=== PATIENT | female | born 2000 | race Caucasian/White ===

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

== ENCOUNTER 2024-04-19 11:47 | Emergency (ER) | payer BC, SELFPAY ==
[2024-04-19 11:48] VITALS: BP 140/89; PULSE 93; RESP 16; TEMP 36.6; O2SAT 100; BMI 30.1
--- NOTE | 2024-04-19 11:56 | US_ITS ---
PROCEDURE: TRANSVAGINAL NON- REASON FOR EXAM: Pain, left vaginal bleeding TECHNIQUE: Transabdominal pelvic ultrasound COMPARISON: None. FINDINGS: Measurements: Uterus: 7.7 x 4.4 x 4.0 with a volume of 71.96 mL Endometrial Thickness: 0.43 Right Ovary: 4.3 x 2.1 x 3.78 with a volume of 17.5 mL. Left Ovary: 2.7 x 2.3 x 1.4 with a volume of 4.47 mL. Uterus: Normal size, myometrial echotexture, and contour. Endometrium: Unremarkable. Right ovary: Contains color flow. It also contains a hypoechoic focus measuring 1.7 x 1.6 x 0.9 cm. Left ovary: Contains color flow. It also contains a hypoechoic focus measuring 3.4 x 3.4 x 1.8 cm. Trace amount of free fluid in the right adnexa. US/Transvaginal Non- IMPRESSION: Bilateral ovarian cysts. Reading Location: [facility]
--- NOTE | 2024-04-19 11:58 | EDS_ITS ---
HPI History of Present Illness Chief Complaint: Abd Pain Narrative Narrative: 23-year-old female past medical history of ovarian cyst, on the left, sized at 4 to 5 cm presents with left-sided pelvic pain and vaginal spotting that she has had since this morning. They did not wake her from sleep. She states this started around 6 AM. This was almost 6 hours ago. Additionally, she ready had her menses earlier this month, and noticed vaginal spotting/bleeding since this morning. She is concerned that her ovarian cyst ruptured. No fevers or chills, no nausea or vomiting, no dysuria or hematuria. No problems with bowel movements. She usually sees a nurse practitioner at [facility] for her gynecological problems. [facility] Medical History Ovarian cyst Home Medications ?Medication ?Instructions ?Recorded ?Last Taken ?Type cetirizine 10 mg tablet (Zyrtec) 10 mg PO DAILY ALLERG Y 04/19/24 Unknown History Allergy/AdvReac Type Severity Reaction Status Date / Time No Known Allergies Allergy Verified 04/19/24 11:53 Family History no significant family his Social History household members: family housing: house current occupational status: employed Smoking Status: Never smoker ROS ROS ED ROS Narrative Constitutional: No fever, no chills. HEENT: No sore throat. No neck pain. No loss of vision. No rhinorrhea. Cardiovascular: No chest pain. No palpitations. No pedal edema. Respiratory: No cough, no shortness of breath. Abdominal: Left-sided pelvic pain, sharp and stabbing and crampy as well. No nausea. No vomiting. Genitourinary: No dysuria. No hematuria. Musculoskeletal: No myalgias. No arthralgias. Neurologic: No headaches. No dizziness. No lightheadedness. Skin: No rash. No change in color. EXAM Physical Exam Narrative Exam Narrative: Afebrile. Vital signs noted. Nontoxic-appearing. Cardiovascular examination reveals a regular rate and rhythm. Lungs clear to auscultation bilaterally. Abdomen is soft, nontender, without guarding or rebound. Positive bowel sounds. Neurological examination is nonfocal and nonlateralizing. Const Vital Signs: 04/19/24 11:48 04/19/24 13:42 Temperature 97.8 F Temperature Source Temporal Pulse Rate 93 75 Respiratory Rate 16 18 Blood Pressure 140/89 H 118/78 Blood Pressure Mean 106 91 Pulse Ox 100 100 Oxygen Delivery Method Room Air MDM MDM MDM Narrative Medical decision making narrative: Differential diagnosis includes but not limited to ovarian cyst rupture versus cystitis versus ovarian torsion. I have very low suspicion for ovarian torsion based on the patient's clinical examination. I reviewed her laboratory work and she has slight elevation of her white count to 11.6 which I think is nonspecific, normal hemoglobin of 14.9, platelet count normal at 389. Electrolyte panel is significant for chloride of 110 which I think is nonspecific, normal BUN and creatinine. Urinalysis is negative for infection and I do not feel that antibiotics are indicated. Serum test is also negative so I doubt ectopic as a cause of her pain. Ultrasound of the pelvis does show bilateral ovarian cysts and trace free fluid in the pelvis which I think is nonspecific. While I am unsure as to the cause of her reported vaginal bleeding, with a negative ultrasound and negative workup I feel she can be discharged to follow-up with her [facility] [employer] [facility]. She did state that she has an ultrasound scheduled for this and follow-up from her previous ultrasound 8 weeks ago. I felt the best that she call her [facility] [employer] [facility] on Sunday to see if they would like to follow-up with her since she had an ultrasound today, and she may be able to cancel her outpatient ultrasound. She will take [id number] medications as needed. I do not feel narcotics are indicated. She had been given Toradol 30 mg intravenously here in the emergency department and noted mild improvement in her pain. Return instructions to the emergency department were reviewed. Disposition is discharged home in stable condition. History & Record Review Discussion w/independent historian: Patient Lab Data Attestation: I reviewed the patient's lab results. Labs: Laboratory Results - last 24 hr 04/19/24 04/19/24 12:15 13:30 WBC 11.6 H RBC 5.24 Hgb 14.9 Hct 42.3 MCV 80.7 L MCH 28.4 MCHC 35.2 RDW Std Deviation 36.5 RDW Coeff of Candy 12.6 Plt Count 389 MPV 8.4 Immature Gran % (Auto) 0.400 Neut % (Auto) 75.3 H Lymph % (Auto) 19.2 [place] % (Auto) 4.1 Eos % (Auto) 0.7 Baso % (Auto) 0.3 Absolute Neuts (auto) 8.7 H Absolute Lymphs (auto) 2.23 Nucleated RBC % 0 Sodium 140 Potassium 3.7 Chloride 110 H Carbon Dioxide 24.0 Anion Gap 7 BUN 7 Creatinine 0.73 Estim Creat Clear Calc 117.21 Est GFR (MDRD) Af Amer 129 Est GFR (MDRD) Non-Af 107 BUN/Creatinine Ratio 9.6 L Glucose 94 Calcium 9.4 Total Bilirubin 0.20 AST 14 L ALT 23 Alkaline Phosphatase 90 Total Protein 8.0 Albumin 3.9 Globulin 4.1 Albumin/Globulin Ratio 1.0 Serum , Qual NEGATIVE Urine Color Straw Urine Clarity Clear Urine pH 6.5 Ur Specific [place] 1.005 Urine Protein Negative Urine Glucose (UA) Normal Urine Ketones Negative Urine Occult Blood 250 H Urine Nitrite Negative Urine Bilirubin Negative Urine Urobilinogen Normal Ur Leukocyte Esterase Negative Urine RBC 0 SEEN Urine WBC 0-5 SEEN Ur Squamous Epith Cells 0-5 SEEN Urine Bacteria 0 SEEN Urine Mucus 0 SEEN Radiography Diagnostic Testing: Clinical Impression(s) from Imaging Studies Transvaginal US 04/19/24 11:56 IMPRESSION: Bilateral ovarian cysts. Reading Location: [facility] Discharge Plan Triage Chief Complaint: Abd Pain ED Provider: Greg Murillo Dx/Rx/DC Orders Clinical Impression: Ovarian cyst, Pelvic pain Instructions: ED Ovarian Cyst, ED Pelvic Pain, Unknown Cause Prescriptions: No Action cetirizine [Zyrtec] 10 mg tablet 10 mg PO DAILY Primary Care Provider: Chavo Farr Referrals: Jesenia Cervantes CNM [Med Staff - Adv Practice Prof] - 3-5 Days Chavo Farr MD [Primary Care Provider] - Activity Restrictions/Additional Instructions: Continue Tylenol and/or ibuprofen as needed for pain. Return with fever, increased pain, new or worsening symptoms. Call your [facility] [employer] [facility] and tell them that you already had an ultrasound before and if they want to follow-up with you this coming week. Print Language: Turkmen Disposition Disposition: Home, Self Care
[2024-04-19 12:35] LABS: Absolute Lymphocyte Count 2.23 X10^3/uL (0.83-4.51); Absolute Neutrophil Count 8.7 X10^3/uL (2.0-7.7); Basophil# 0.04 X10^3/uL; Basophil% 0.3 % (0-1); Eosinophil# 0.08 X10^3/uL; Eosinophils% 0.7 % (0-5); Hematocrit 42.3 % (37-47); Hemoglobin 14.9 g/dL (12.0-15.0); Lymphocyte # 2.23 X10^3/ul (0.83-4.51); Lymphocyte % 19.2 % (19-41); Mean Corp Hgb Conc 35.2 g/dL (32-36); Mean Corpuscular Hgb 28.4 pg (27.0-32.0); Mean Corpuscular Volume 80.7 fL (81-99); Mean Platelet Vol. 8.4 fl (6.2-12.0); Monocyte# 0.48 X10^3/uL; Monocyte% 4.1 % (0-10); NRBC Flagged by Analyzer 0 % (0-5); Neutrophil # 8.74 X10^3/uL (2.7-7.7); Neutrophil % 75.3 % (47-70); Platelet Count 389 K/mm3 (150-450); RBC Distribution Width CV 12.6 % (11.6-14.6); RBC Distribution Width SD 36.5 fl (35.1-43.9); Red Blood Count 5.24 M/mm3 (4.2-5.4); White Blood Count 11.6 K/mm3 (4.4-11.0)
[2024-04-19 12:48] LABS: Internal QC Validated? YES +Cl - CLEAR BKGD; Pregnancy, Serum, hCG Quali. NEGATIVE Negative
[2024-04-19 12:56] LABS: AST(SGOT) 14 U/L (15-37); Alanine Aminotransfer ALT/SGPT 23 U/L (13-56); Albumin, Serum 3.9 g/dL (3.2-5.0); Alkaline Phosphatase 90 U/L (45-117); Anion Gap 7 (5-15); BUN 7 mg/dL (7-18); BUN/Creat Ratio 9.6 RATIO (10-20); Calcium,Total 9.4 mg/dL (8.5-10.1); Chloride 110 mmol/L (98-107); Creatinine, Serum 0.73 mg/dL (0.55-1.02); EST Glomerular Filtration Rate 107 mL/min (>60); Est Glom Filt Rate - Afr Amer 129 mL/min (>60); Estimated Creatinine Clearance 117.21 ml/min; Globulin 4.1 g/dL (2.2-4.2); Glucose 94 mg/dL (74-106); Potassium 3.7 mmol/L (3.5-5.1); Sodium Level 140 mmol/L (136-145)
[2024-04-19 13:38] LABS: Bacteria 0 SEEN /hpf (None Seen); Mucous, Urine 0 SEEN /hpf (<or=2+)
[2024-04-19 13:39] LABS: Color, Urine Straw (Yellow); Glucose, Dipstick Normal (Normal); Ketone-Dipstick Negative (Negative); Leukocyte Esterase-Dipstick Negative /ul (Negative); Nitrite-Dipstick Negative (Negative); Occult Blood-Urine 250 /ul (Negative); Protein-Dipstick Negative (Negative); Specific Gravity, Urine 1.005 (1.002-1.030); Urine Bilirubin Dipstick Negative (Negative); Urine Clarity Clear (Clear); Urine Urobilinogen Normal (Normal); Urine pH 6.5 (5.0 - 8.0)
[2024-04-19] MEDS: Ketorolac 30 MG/ML Syringe IV (13:40)
[2024-04-19 13:42] VITALS: BP 118/78; PULSE 75; RESP 18; O2SAT 100
[2024-04-19 14:08] LABS: Red Blood Cells-Urine 0 SEEN /hpf (0-5); Squamous Epithelial Cells - UA 0-5 SEEN /hpf (5-10); White Blood Cells 0-5 SEEN /hpf (0-5)
== END 2024-04-19 14:21 | disposition home or self-care (01) ==
PROVIDERS: Emergency Provider Emergency Medicine; PCP Family Medicine; Visit Provider Emergency Medicine
DX: R10.2 Pelvic and perineal pain (principal); N83.202 Unspecified ovarian cyst, left side; N83.201 Unspecified ovarian cyst, right side
CPT/HCPCS: 76830; 80053; 81001; 84703; 85025; 96374; 99283; A4216

== ENCOUNTER 2024-05-17 08:47 | Emergency (ER) | payer BC, SELFPAY ==
[2024-05-17 08:48] VITALS: BP 141/97; PULSE 69; RESP 18; TEMP 36.9; O2SAT 100; BMI 30.1
--- NOTE | 2024-05-17 09:09 | EX.ED.DYSGE1 ---
HPI History of Present Illness Chief Complaint: Allergic Reaction Narrative Narrative: 24-year-old female who denies significant past medical history except for right knee pain for which she is seeing orthopedics, presents with what she thinks is an allergic reaction to meloxicam. While she has taken ibuprofen in the past, her orthopedic surgeon put her on meloxicam 15 mg orally. She took her first dose yesterday evening before she went to bed around 10 PM. This was approximately 11 hours ago. This morning when she awoke at around 7 AM, she noticed that her face might have started turning red. It is progressed over the last few hours. It feels tight and itchy. She has redness and rash to her back as well. She denies any throat closing or difficulty breathing. No exacerbating or alleviating factors. [facility] Medical History Nexplanon in place Ovarian cyst Home Medications ?Medication ?Instructions ?Recorded ?Last Taken ?Type cetirizine 10 mg tablet (Zyrtec) 10 mg PO DAILY ALLERGY 04/19/24 Unknown History famotidine 20 mg tablet (Pepcid) 20 mg PO DAILY #7 tabs 05/17/24 Unknown Rx prednisone 20 mg tablet 40 mg (2 x 20 mg) PO DAILY 7 days 05/17/24 Unknown Rx #14 tabs Allergy/AdvReac Type Severity Reaction Status Date / Time meloxicam Allergy Intermediate Hives Verified 05/17/24 09:35 Social History household members: family housing: house current occupational status: employed Smoking Status: Never smoker ROS ROS ED ROS Narrative Constitutional: No fever, no chills. HEENT: No sore throat. No throat closing sensation. Cardiovascular: No chest pain. No palpitations. No pedal edema. Respiratory: No cough, no shortness of breath. Denies difficulty breathing. Abdominal: No abdominal pain. No nausea. No vomiting. Musculoskeletal: No myalgias. No arthralgias. Neurologic: No headaches. No dizziness. No lightheadedness. Skin: Positive rash on back. Redness to face and neck, with itchiness. EXAM Physical Exam Narrative Exam Narrative: Afebrile. Vital signs noted. Nontoxic-appearing. Cardiovascular examination reveals a regular rate and rhythm. Lungs are clear to auscultation bilaterally without wheezing. Speaking in full sentences. Abdomen is soft nontender. Skin examination does reveal confluence of forming hives with erythema to back. Positive erythema to the face. PERRL, EOMI. Airway patent. No stridor. No mucosal lesions. No drooling or trismus. Const Vital Signs: 05/17/24 08:48 Temperature 98.4 F Temperature Source Oral Pulse Rate 69 Respiratory Rate 18 Blood Pressure 141/97 H Blood Pressure Mean 111 Pulse Ox 100 Oxygen Delivery Method Room Air MDM MDM MDM Narrative Medical decision making narrative: Differential diagnosis includes but not limited to drug reaction versus localized allergic reaction versus anaphylaxis versus Reyes-Jass syndrome. The history and physical does not support Reyes-Jass's. I do not feel epinephrine is indicated as her pulse ox is 100% on room air, she is not hypotensive nor is she tachycardic. I do feel that she can be treated with oral steroids, as well as antihistamines. She was given Benadryl 25 mg orally, Pepcid 20 mg orally, and a loading dose of steroid at 60 mg. She will be observed in the emergency department. Repeat examination at approximately 10:30 AM shows her resting on the cot, with mild improvement of her symptoms. At this point in time, I feel she can be discharged to follow-up. She was given the prescriptions for a prednisone burst for 7 days as well as Pepcid. She will take [id number] Benadryl especially for the next 48 hours. I do not feel epinephrine is indicated. Return instructions to the emergency department were reviewed. Patient motivated for discharge. Disposition is discharged home in stable condition. History & Record Review Discussion w/independent historian: Patient Discharge Plan Triage Chief Complaint: Allergic Reaction ED Provider: Greg Murillo Dx/Rx/DC Orders Clinical Impression: Allergy to nonsteroidal anti-inflammatory drug (NSAID), Hives Instructions: ED ADVERSE DRUG REACTION Allergic, ED General Allergic Reactions Prescriptions: New famotidine [Pepcid] 20 mg tablet 20 mg PO DAILY Qty: 7 0RF prednisone 20 mg tablet 40 mg PO DAILY 7 Days Qty: 14 0RF No Action cetirizine [Zyrtec] 10 mg tablet 10 mg PO DAILY Primary Care Provider: Chavo Farr Referrals: Chavo Farr MD [[facility]] - Activity Restrictions/Additional Instructions: Avoid use of meloxicam. Take Benadryl 25 to 50 mg every 4-6 hours as needed, especially over the next 48 hours. Return to the emergency department with difficulty breathing, sensation of throat closing, new or worsening symptoms. Print Language: Thai Disposition Disposition: Home, Self Care
[2024-05-17] MEDS: DiphenhydrAMINE 25 MG Capsule PO (09:15)
[2024-05-17] MEDS: predniSONE 20 MG Tablet 60 MG PO (09:15)
[2024-05-17] MEDS: Famotidine 20 MG Tablet PO (09:15)
[2024-05-17 10:49] VITALS: BP 130/68; PULSE 80; RESP 14; TEMP 36.6; O2SAT 99
== END 2024-05-17 10:50 | disposition home or self-care (01) ==
PROVIDERS: Emergency Provider Emergency Medicine; PCP Family Medicine; Visit Provider Emergency Medicine
DX: L50.9 Urticaria, unspecified (principal); T39.395A Adverse effect of other nonsteroidal anti-inflammatory drugs [NSAID], initial encounter
CPT/HCPCS: 99282